=== PATIENT | female | born 1955 | race Caucasian/White ===

== ENCOUNTER 2023-03-24 10:59 | Inpatient (IN) | payer OTHER ==
[~2023-03-24] VITALS: Ht 172.7 cm; Wt 64.0 kg
[2023-03-24] MEDS: FAMOTIDINE 20MG/2ML VIAL IVP ONE (11:28)
[2023-03-24] MEDS: TRANEXAMIC ACID INJection 1,000 MG in D5W MINI-BAG PLUS 100 ML IV ONE (11:28)
[2023-03-24 11:39] LABS: HEMOGLOBIN 11.1 g/dl (12.0-15.5); MEAN CORPUSCULAR HEMOGLOBIN 32.2 pg (27.0-33.0); MEAN CORPUSCULAR HGB CONC 33.6 g/dl (32.0-36.5); MEAN CORPUSCULAR VOLUME 95.7 fl (80.0-96.0); PLATELET COUNT, AUTOMATED 449 10^3/uL (150-450); RED BLOOD COUNT 3.45 10^6/uL (4.00-5.40); WHITE BLOOD COUNT 13.6 10^3/uL (4.0-10.0)
[2023-03-24] MEDS ORDERED: ASPI81CH33 PO (11:43)
[2023-03-24] MEDS ORDERED: PHOS1TAB3 PO (11:43)
[2023-03-24] MEDS ORDERED: LISI20TA33 PO (11:43)
[2023-03-24] MEDS ORDERED: AMLO1TAB25 PO (11:43)
[2023-03-24] MEDS ORDERED: LEVO1TAB38 PO (11:43)
[2023-03-24] MEDS ORDERED: ONDA-83 PO (11:43)
[2023-03-24 12:03] LABS: COMPLEMENT C4 21.3 MG/DL (12-36)
[2023-03-24 12:04] LABS: ALBUMIN 3.2 G/DL (3.2-5.2); ALKALINE PHOSPHATASE 270 U/L (46-116); ALT/SGPT 78 U/L (7.0-40); AST/SGOT 70 U/L (<34); BILIRUBIN,DIRECT 0.2 MG/DL (<0.4); BILIRUBIN,TOTAL 0.4 MG/DL (0.3-1.2); BLOOD UREA NITROGEN 16 MG/DL (9-23); CALCIUM LEVEL 8.6 MG/DL (8.3-10.6); CARBON DIOXIDE LEVEL 24 MMOL/L (20-31); CHLORIDE LEVEL 100 MMOL/L (98-107); CREATININE FOR GFR 0.75 MG/DL (0.55-1.30); GLOMERULAR FILTRATION RATE > 60.0 (>45); GLUCOSE, FASTING 94 MG/DL (74-106); POTASSIUM SERUM 3.6 MMOL/L (3.5-5.1); SODIUM LEVEL 133 MMOL/L (136-145); TOTAL PROTEIN 6.4 G/DL (5.7-8.2)
[2023-03-24 12:17] LABS: ERYTHROCYTE SEDIMENTATION RATE 90 mm/hr (0-30)
[2023-03-24 12:35] LABS: RSV AMPLIFICATION NEGATIVE (NEGATIVE)
[2023-03-24] MEDS ORDERED: MED REC IN PROGRESS XX SCH (12:40)
[2023-03-24 12:43] LABS: ATYPICAL LYMPH 8 % (0-5); LYMPHOCYTES 3 % (16-44); METAMYELOCYTES 2 % (0-0); MONOCYTES 9 % (0-5); NEUTROPHILS 76 % (28-66)
[2023-03-24 12:44] LABS: PLATELET ESTIMATE INCREASED (NORMAL); POLYCHROMASIA 1+; TOXIC VACUOLATION 1+
[2023-03-24] MEDS ORDERED: VITA-55 PO (13:44)
[2023-03-24] MEDS ORDERED: ZINC100T3 PO (13:44)
[2023-03-24] MEDS ORDERED: ASPI81TA26 PO (13:44)
[2023-03-24] MEDS ORDERED: MAG100TA PO (13:44)
[2023-03-24] MEDS ORDERED: CALC500C16 PO (13:44)
[2023-03-24] MEDS ORDERED: [UNRECOGNIZED DRUG - OTHER] PO (13:44)
[2023-03-24] MEDS ORDERED: HOME MED LIST COMPLETE! XX SCH (13:55)
[2023-03-24 14:00] VITALS: BP 153/87; TEMP 98.8; O2SAT 97
[2023-03-24] MEDS ORDERED: hydrALAZINE 20MG/ML 1ML VIAL IV PRN (14:20)
[2023-03-24 15:00] VITALS: BP 149/95; O2SAT 97
[2023-03-24] MEDS: diphenhydrAMINE 25MG CAP PO SCH (15:35)
[2023-03-24] MEDS: predniSONE 20 MG TAB PO SCH (15:40)
[2023-03-24 19:00] VITALS: O2SAT 96
[2023-03-24 20:00] VITALS: O2SAT 100
[2023-03-24 20:05] VITALS: BP 115/77; TEMP 98.3; O2SAT 96
[2023-03-24] MEDS ORDERED: ACETAMINOPHEN TAB 650MG DOSE (2X325MG) PO PRN (20:25)
[2023-03-24] MEDS: IBUPROFEN 400MG TAB PO ONE (20:45)
[2023-03-24 21:00] VITALS: O2SAT 96
[2023-03-24] MEDS ORDERED: BENAZEPRIL 20 MG TAB PO SCH (21:00)
[2023-03-25 04:00] VITALS: BP 159/86; TEMP 98.4; O2SAT 98
[2023-03-25 08:00] VITALS: BP 159/94; TEMP 98.2; O2SAT 98
[2023-03-25 08:04] VITALS: BP 159/94
[2023-03-25] MEDS ORDERED: DIPH-435 PO (08:57)
[2023-03-25] MEDS ORDERED: PRED20TA PO (08:57)
[2023-03-25] MEDS ORDERED: ENOXAPARIN 40MG/0.4ML SYRINGE (J1650 PER 10MG) SC SCH (09:00)
== END 2023-03-25 10:25 | disposition home or self-care (01) | DRG 916 ==
LOC: M ED 10:59 → EDBD 10:59 → M ED INP 12:11 → M ICU 12:39
PROVIDERS: ADMIT Internal Medicine Pulmonary Disease; ATTEND Internal Medicine Pulmonary Disease
DX: T78.3XXA Angioneurotic edema, initial encounter (principal); N39.0 Urinary tract infection, site not specified; T46.4X5A Adverse effect of angiotensin-converting-enzyme inhibitors, initial encounter; I10 Essential (primary) hypertension; R74.01 Elevation of levels of liver transaminase levels; Z79.82 Long term (current) use of aspirin; Z79.899 Other long term (current) drug therapy; Z88.0 Allergy status to penicillin; Z88.8 Allergy status to other drugs, medicaments and biological substances; Z20.822 Contact with and (suspected) exposure to COVID-19